=== PATIENT | male | born 1955 | race Caucasian/White ===

== ENCOUNTER 2016-04-06 14:27 | Inpatient (IN) | payer MEDICARE ==
[~2016-04-06] VITALS: Ht 172.7 cm; Wt 80.8 kg
[2016-04-06 14:32] VITALS: BP 137/77; PULSE 66; RESP 20; TEMP 97.6; O2SAT 97
--- NOTE | 2016-04-06 14:55 | PD ---
HPI Chief Complaint: Psychiatric Symptoms Time Seen by Provider: 14:55 Travel History International Travel<30 days: No Contact w/Intl Traveler<30days: No Traveled to known affect area: No History of Present Illness HPI 60-year-old male was brought to the emergency room by his son-in-law with history of worsening of his psych symptoms. Patient says that he's been hearing voices and cannot sit still. He has been feeling very edgy. He was constantly shaking his both upper extremities and pacing up and down. Son-in- law says he has not been taking any of his medications but it's been like that for one year. Recently his symptoms are worsening. He was brought in voluntarily. REPLACED BY [facility] Past Medical History Narrative Medical List of his past medical history as reviewed from the nursing note. Social History Tobacco Use: Yes Allergies-Medications (Allergen,Severity, Reaction): Coded Allergies: No Known Allergies (Unverified , 04/06/16) Comments No known allergies. Reported Meds & Prescriptions Reported Meds & Active Scripts Active No Active Prescriptions or Reported Medications Narrative Medication List of his past medical history as reviewed from the nursing note. Review of Systems Except as stated in HPI: all other systems reviewed are Neg Physical Exam Narrative GENERAL: Awake, alert, anxious, facial grimacing SKIN: Warm and dry. HEAD: Atraumatic. Normocephalic. EYES: Pupils equal and round. No scleral icterus. No injection or drainage. ENT: No nasal bleeding or discharge. Mucous membranes pink and moist. NECK: Trachea midline. No JVD. CARDIOVASCULAR: Regular rate and rhythm. No murmur appreciated. RESPIRATORY: No accessory muscle use. Clear to auscultation. Breath sounds equal bilaterally. GASTROINTESTINAL: Abdomen soft, non-tender, nondistended. Hepatic and splenic margins not palpable. MUSCULOSKELETAL: No obvious deformities. No clubbing. No cyanosis. No edema. NEUROLOGICAL: Awake and alert. No obvious cranial nerve deficits. Motor grossly within normal limits. Normal speech. PSYCHIATRIC: Appropriate mood and affect; insight and judgment normal. Data Data Last Documented VS Vital Signs Date Time Temp Pulse Resp B/P Pulse Ox O2 Delivery O2 Flow Rate FiO2 04/07/16 06:25 55 18 136/74 100 Room Air 04/06/16 14:32 97.6 Orders Complete Blood Count With Diff (04/06/16 14:55) Comprehensive Metabolic Panel (04/06/16 14:55) Drug Screen, Random Urine (04/06/16 14:55) Alcohol (Ethanol) (04/06/16 14:55) Psych Screen (04/06/16 14:55) Lorazepam (Ativan) (04/06/16 15:00) Haloperidol (Haldol) (04/06/16 15:00) Diphenhydramine (Benadryl) (04/06/16 15:00) Diet Regular Basic (04/06/16 Dinner) Diet Regular Basic (04/07/16 Breakfast) Admit Order (Ed Use Only) (04/07/16 ) Labs Laboratory Tests Test 04/06/16 04/06/16 15:20 15:25 Urine Opiates Screen NEG Urine Barbiturates Screen NEG Urine Amphetamines Screen NEG Urine Benzodiazepines Screen NEG Urine Cocaine Screen NEG Urine Cannabinoids Screen NEG White Blood Count 6.7 TH/MM3 Red Blood Count 4.82 MIL/MM3 Hemoglobin 14.9 GM/DL Hematocrit 42.6 % Mean Corpuscular Volume 88.3 FL Mean Corpuscular Hemoglobin 31.0 PG Mean Corpuscular Hemoglobin 35.1 % Concent Red Cell Distribution Width 13.6 % Platelet Count 212 TH/MM3 Mean Platelet Volume 9.1 FL Neutrophils (%) (Auto) 55.5 % Lymphocytes (%) (Auto) 34.9 % Monocytes (%) (Auto) 7.2 % Eosinophils (%) (Auto) 1.9 % Basophils (%) (Auto) 0.5 % Neutrophils # (Auto) 3.7 TH/MM3 Lymphocytes # (Auto) 2.3 TH/MM3 Monocytes # (Auto) 0.5 TH/MM3 Eosinophils # (Auto) 0.1 TH/MM3 Basophils # (Auto) 0.0 TH/MM3 CBC Comment DIFF FINAL Differential Comment Sodium Level 143 MEQ/L Potassium Level 3.9 MEQ/L Chloride Level 111 MEQ/L Carbon Dioxide Level 26.8 MEQ/L Anion Gap 5 MEQ/L Blood Urea Nitrogen 13 MG/DL Creatinine 0.78 MG/DL Estimat Glomerular Filtration 102 ML/MIN Rate Random Glucose 84 MG/DL Calcium Level 8.6 MG/DL Total Bilirubin 0.3 MG/DL Aspartate Amino Transf 15 U/L (AST/SGOT) Alanine Aminotransferase 21 U/L (ALT/SGPT) Alkaline Phosphatase 110 U/L Total Protein 7.9 GM/DL Albumin 4.0 GM/DL Ethyl Alcohol Level LESS THAN 3 MG/DL MDM Medical Decision Making Medical Screen Exam Complete: Yes Emergency Medical Condition: Yes Medical Record Reviewed: Yes Interpretation(s) Twelve-lead EKG was reviewed by me. Normal sinus rhythm, normal axis, nonspecific ST-T wave changes. Heart rate of 91 bpm. Differential Diagnosis Psychosis, auditory hallucinations Narrative Course 4:02 PM patient was given by mouth Haldol, Ativan and Benadryl. CBC is back and within normal limit. Awaiting for chemistry and urine drug screen. Once patient is medically cleared he will be need psych screen. Procedures EKG Prior to Arrival: No Scripts No Active Prescriptions or Reported Meds Mike Londono MD Apr 06, 2016 14:55
[2016-04-06] MEDS ORDERED: HALOPERIDOL 5 MG TAB PO ONE (15:00)
[2016-04-06] MEDS ORDERED: LORazepam 1 MG TAB PO ONE (15:00)
[2016-04-06] MEDS ORDERED: diphenhydrAMINE HCL 50 MG CAP PO ONE (15:00)
[2016-04-06 15:34] LABS: AUTOMATED NEUTROPHIL # 3.7 TH/MM3 (1.8-7.7); BASOPHIL % 0.5 % (0.0-2.0); EOSINOPHIL # 0.1 TH/MM3 (0-0.4); EOSINOPHIL % 1.9 % (0.0-4.0); HEMATOCRIT 42.6 % (39.0-51.0); HEMO FLAGS DIFF FINAL; LYMPH % 34.9 % (9.0-44.0); LYMPHOCYTE # 2.3 TH/MM3 (1.0-4.8); MEAN CELL VOLUME 88.3 FL (80.0-100.0); MEAN CORPUSCULAR HGB CONC 35.1 % (32.0-36.0); MONO % 7.2 % (0.0-8.0); NEUT % 55.5 % (16.0-70.0); PLATELET COUNT 212 TH/MM3 (150-450); RED BLOOD COUNT 4.82 MIL/MM3 (4.50-5.90); RED CELL DISTRIBUTION WIDTH 13.6 % (11.6-17.2); WHITE BLOOD COUNT 6.7 TH/MM3 (4.0-11.0)
[2016-04-06 15:42] LABS: AMPHETAMINE, URINE NEG (NEG); BARBITURATES, URINE NEG (NEG); COCAINE, URINE NEG (NEG)
[2016-04-06 16:05] LABS: ALKALINE PHOSPHATASE 110 U/L (45-117); ALT (GPT) 21 U/L (12-78); ANION GAP 5 MEQ/L (5-15); AST (GOT) 15 U/L (15-37); BICARBONATE 26.8 MEQ/L (21.0-32.0); BLOOD UREA NITROGEN 13 MG/DL (7-18); CHLORIDE 111 MEQ/L (98-107); GLOMERULAR FILTRATION RATE 102 ML/MIN (>89); POTASSIUM 3.9 MEQ/L (3.5-5.1); SODIUM (NA) 143 MEQ/L (136-145); TOTAL BILIRUBIN ADULT 0.3 MG/DL (0.2-1.0)
[2016-04-06 22:09] VITALS: BP 108/76; PULSE 95; RESP 19; O2SAT 99
[2016-04-07 01:48] VITALS: BP 129/69; PULSE 54; RESP 19; O2SAT 98
[2016-04-07 06:25] VITALS: BP 136/74; PULSE 55; RESP 18; O2SAT 100
[2016-04-07] MEDS ORDERED: MAGNESIUM HYDROXIDE SUSP 30 ML CUP PO PRN (08:15)
[2016-04-07] MEDS ORDERED: ALUMINUM/MAGNESIUM/SIMETH 30 ML CUP PO PRN (08:15)
[2016-04-07] MEDS ORDERED: ACETAMINOPHEN 325 MG TAB PO PRN (08:15)
[2016-04-07] MEDS ORDERED: LORazepam 2 MG/ML VIAL IM PRN (08:15)
[2016-04-07] MEDS ORDERED: diphenhydrAMINE HCL 50 MG/ML VIAL IM PRN (08:15)
[2016-04-07] MEDS ORDERED: diphenhydrAMINE HCL 50 MG CAP PO PRN ×2 (08:15)
[2016-04-07] MEDS: NICOTINE 21 MG/24 HR PATCH T-DERMAL SCH (09:00)
[2016-04-07] MEDS: REMOVE OLD NICOTINE PATCH T-DERMAL SCH (09:00)
[2016-04-07] MEDS: LORazepam 1 MG TAB PO PRN ×2 (09:08→16:29)
[2016-04-07] MEDS: HALOPERIDOL 5 MG TAB PO SCH ×2 (09:08→21:24)
--- NOTE | 2016-04-07 09:42 | MH ---
cc: SURYA CASAS MD DATE OF ADMISSION: 04/06/2016 ADMISSION DIAGNOSES 1. Schizophrenia, paranoid type with acute exacerbation. LEGAL STATUS The patient is capacitated to consent for admission and for medications. He has agreed to sign into the hospital voluntarily. HISTORY OF PRESENT ILLNESS Mr. Fowler is a 60-year-old male with a reported history of schizophrenia of the paranoid type, who presents on a voluntary basis for psychiatric evaluation. Reviewing the electronic medical record I note this is the patient's first visit to [facility]. The patient is seen and examined. Chart reviewed. Case discussed with nursing staff in the J pod. On my examination this morning, I find a calm and pleasant middle-aged male. He appears to be maintaining basic hygiene. He has some evident dyskinetic movements of the mouth, face and trunk and when I ask him about these he says that he is "being attacked by Satanists. They are attacking me. They rotate in shifts every 24 hours." He says that this has been going on 23 years. He also has been experiencing deprecatory auditory hallucinations that he says are threatening to kill him. He denies any suicidal or homicidal ideation. When I ask him why he does not want to kill the people that are attacking him he says, "I can't do nothing about it, I'm a Yarsanism." He says that he has been sleeping and eating fairly well. No real depressive symptoms. No other delusional material. The remainder of the psychiatric ROS is negative. PAST PSYCHIATRIC HISTORY The patient reports a prior diagnosis of schizophrenia. He has not seen a psychiatrist in 8 months and has been off medication. He says that the Haldol, Ativan and Benadryl that we gave him last night was extremely helpful and he would very much like to continue this regimen. He says his most recent psychiatric admission was several years ago, he cannot remember when exactly. He denies a history of suicide attempts. FAMILY HISTORY The patient reports that his brother has schizophrenia. His daughter also attempted suicide. No other family psychiatric history. CHEMICAL DEPENDENCY HISTORY The patient denies a history of abuse of drugs or alcohol. SOCIAL HISTORY The patient reports that he lives with his brother and son-in-law. He has a GED. He is on disability. He has five children and several grandchildren. He denies any legal history. He served in the [employer] but did not see combat. He had an honorable discharge. He denies any access to guns or firearms. He is Yarsanism. PAST MEDICAL HISTORY The patient reports a history of hepatitis C with associated cirrhosis of the liver. REVIEW OF SYSTEMS No reported headache, vision or hearing changes, chest pain, shortness of breath, bowel or bladder issues. He does have the dyskinetic movements as I said. PHYSICAL EXAMINATION Physical examination was completed in the emergency room by the ER staff and the patient was medically cleared. On my examination today, the patient appears to be well-nourished and well-developed if a little bit disheveled. He appears to be in no acute physical distress. He does have dyskinetic movements of the mouth, trunk and arms but otherwise no abnormal motor movements are noted. VITAL SIGNS: Temperature is 97.6 Fahrenheit, pulse is 55, respiratory rate is 18, blood pressure 136/74, O2 sat is 100% on room air. LABORATORY CBC is completely unremarkable, CMP is significant only for mild hyperchloremia at 111. Toxicology is negative and alcohol level is undetectable. MENTAL STATUS EXAMINATION The patient is in hospital gown. He is somewhat disheveled but maintaining basic hygiene. He is awake and alert and oriented x3. Motoric abnormalities as noted above. Speech is within normal limits for rate, tone and volume. Language and fund of knowledge seem average for age. Mood is fair and affect is blunted, tending towards flat. Thought process linear within delusional system. No loosening of associations. Paranoid delusions as detailed above are present. Deprecatory auditory hallucinations as noted above. No command auditory hallucinations. No visual hallucinations or other hallucinatory material. Denies any suicidal or homicidal ideation for the reasons noted above. Insight and judgment are fair. ASSESSMENT/PLAN This is a pleasant 60-year-old male with a history of schizophrenia who presents with decompensated psychotic symptoms in the setting of apparent medication non-adherence. He endorses paranoid delusions of being attacked by Satanists, and he appears to have delusional interpretation of what appears to be some dyskinesias. He says that he was really helped by the Haldol, Ativan and Benadryl that he received last night, more than he has been helped by any previous psychotropic medication in the past. He is agreeable to coming into the hospital for some psychiatric stabilization. I did discuss his options vis-a-vis pharmacotherapy with him in some detail and he says that he has tried several of the atypical antipsychotics which would be less liable to cause worsening of his apparent tardive dyskinesia, but he has not found any of them to be as efficacious as the Haldol he got last night. He would really like to continue the Haldol. Therefore, after discussion of the risks and benefits including highlighting the risk of worsening his tardive dyskinesia, he wishes to pursue Haldol therapy. Admit inpatient. Voluntary status. Check a hemoglobin A1c and lipid panel in the morning. Initiate Haldol 5 mg twice daily by mouth. Ativan as needed for anxiety, Benadryl as needed for sleep or EPS or mild anxiety. Vitals every shift. Counselor to see. Disposition planning. ESTIMATED LENGTH OF STAY: 3-5 days. Surya Casas DC/GEOVANNY /8:11 AM /9:02 AM [place]
[2016-04-07 09:52] VITALS: BP 114/70; PULSE 68; RESP 12; TEMP 97.4; O2SAT 96
[2016-04-07 19:01] VITALS: BP 114/60; PULSE 63; RESP 22; TEMP 97.7; O2SAT 95
[2016-04-08 05:47] VITALS: BP 131/65; PULSE 52; RESP 14; TEMP 97.6; O2SAT 96
[2016-04-08 07:33] LABS: HDL CHOLESTEROL 66.4 MG/DL (40.0-60.0); LDL CHOLESTEROL 69 MG/DL (0-99)
[2016-04-08] MEDS: NICOTINE 21 MG/24 HR PATCH T-DERMAL SCH (08:13)
[2016-04-08] MEDS: REMOVE OLD NICOTINE PATCH T-DERMAL SCH (08:14)
[2016-04-08] MEDS: HALOPERIDOL 5 MG TAB PO SCH ×2 (08:19→20:28)
[2016-04-08] MEDS ORDERED: INFLUENZA VIRUS VACCINE (QUADRIVALENT) 0.5 ML SYR IM ONE (10:00)
[2016-04-08] MEDS: LORazepam 1 MG TAB PO PRN ×2 (10:46→20:28)
--- NOTE | 2016-04-08 13:37 | HHI.PYPN ---
Subjective Remarks Patient seen and examined. Chart reviewed. Case discussed with nursing staff. Per nursing staff, patient continues to respond to internal stimuli. On my examination today, the patient tells me that he was "attacked earlier by spirits , but I feel better now." When I ask what this sort of attack feels like he says "I lose control of my bodily functions." Denies suicidal or homicidal ideation. Denies side effects from medications. Patient likes the anxiolytic effect of Ativan but wonders if there is something longer acting and we discussed the risks and benefits of some scheduled Klonopin. Patient is somewhat discharge focused but is willing to stay to allow us to make these medication adjustments. Review of Systems ROS Limitations: Poor Historian Other No physical complaints today. Objective Alert: Yes [place]: Person, Place Mood: Calm Affect: Flat Memory Intact: Comment (Intact on clinical exam.) Hallucinations: Auditory, Visual Delusions: Yes Delusion Type: Paranoid Suicidal: Ideation (Denies SI) Homicidal: Ideation (Denies HI) Insight/Judgement Fair Remarks No new abnormal motor movements noted. Dyskinesias persist, unchanged in severity. TP linear within delusional system. Speech wnl for rate, tone, volume. Labs Test 04/08/16 06:55 Triglycerides Level 121 MG/DL Cholesterol Level 160 MG/DL LDL Cholesterol 69 MG/DL HDL Cholesterol 66.4 MG/DL Cholesterol/HDL Ratio 2.40 RATIO Labs reviewed. Vitals/IOs Vital Signs Date Time Temp Pulse Resp B/P Pulse Ox O2 Delivery O2 Flow Rate FiO2 04/08/16 05:47 97.6 52 14 131/65 96 04/07/16 06:25 Room Air Intake and Output 04/07/16 04/07/16 04/08/16 08:00 16:00 00:00 Intake Total 480 ml 540 ml Balance 480 ml 540 ml Assessment & Plan Problem List: (1) Schizophrenia ICD Code: F20.9 Assessment & Plan Titrate patient's Haldol to target psychosis. Initiate low-dose Klonopin 0.5 mg twice daily. Continue other medications and care as ordered. Justification for Cont. Inpt. Impairments in reality testing. Medication changes in process. Discharge Planning Pending psychiatric stabilization. Request HC Surrog/Guard Advoc?: No Problem Qualifiers (1) Schizophrenia: Qualified Code: F20.0 - Paranoid schizophrenia Surya Casas MD Apr 08, 2016 13:37
[2016-04-08] MEDS ORDERED: PILL SPLITTER OTHER PRN (13:45)
[2016-04-08 16:57] LABS: HEMOGLOBIN A1a 0.9 %; HEMOGLOBIN A1b 1.5 %; HEMOGLOBIN Ao 86.8 %; HEMOGLOBIN LA1C 1.8 %; HEMOGLOBIN P3 3.5 %
[2016-04-08 18:42] VITALS: BP 119/62; PULSE 72; RESP 16; TEMP 97.5; O2SAT 96
[2016-04-08] MEDS: clonazePAM 0.5 MG TAB PO SCH (22:15)
[2016-04-09 06:15] VITALS: BP 120/61; PULSE 64; RESP 16; TEMP 97.8; O2SAT 96
[2016-04-09] MEDS: clonazePAM 0.5 MG TAB PO SCH ×2 (08:19→21:55)
[2016-04-09] MEDS: REMOVE OLD NICOTINE PATCH T-DERMAL SCH (08:20)
[2016-04-09] MEDS: NICOTINE 21 MG/24 HR PATCH T-DERMAL SCH (08:20)
[2016-04-09] MEDS: HALOPERIDOL 5 MG TAB PO SCH ×2 (08:20→21:57)
--- NOTE | 2016-04-09 13:16 | HHI.PYPN ---
Subjective Remarks Patient seen and examined. Chart reviewed. Case discussed with nursing staff and counselor. On my examination today, the patient reports that he feels like he is being attacked less often by the spirits. He is less distressed by these attacks when they do occur. He continues to believe that he may be pursued by Satanists, but seems less distressed by this as well. Denies side effects from medications. We discussed ongoing medication adjustment options as well as disposition options. Review of Systems Other No physical complaints today Objective Alert: Yes [place]: Person, Place Mood: Calm Affect: Blunted Memory Intact: Comment (remains intact) Hallucinations: Auditory (perhaps lessening), Visual Delusions: Yes Delusion Type: Paranoid (perhaps improving somewhat) Suicidal: Ideation (no SI) Homicidal: Ideation (no HI) Insight/Judgement Fair Remarks No new or worsened motoric abnormalities noted. Labs Labs reviewed. Vitals/IOs Vital Signs Date Time Temp Pulse Resp B/P Pulse Ox O2 Delivery O2 Flow Rate FiO2 04/09/16 06:15 97.8 64 16 120/61 96 04/07/16 06:25 Room Air Intake and Output 04/08/16 04/08/16 04/09/16 08:00 16:00 00:00 Intake Total 2020 ml Balance 2020 ml Assessment & Plan Problem List: (1) Schizophrenia ICD Code: F20.9 Assessment & Plan Patient seems to be responding to Haldol/Klonopin combination. Haldol was just titrated yesterday. Continue Haldol as ordered for now although we could consider titrating the dose to 10 mg twice a day tomorrow. Continue Klonopin as ordered. Continue other medications and care as ordered. Justification for Cont. Inpt. Risk for decompensation. Impairments in reality testing. Discharge Planning Possible assisted living placement if the patient is willing. Case discussed with counselor. Request HC Surrog/Guard Advoc?: No Problem Qualifiers (1) Schizophrenia: Qualified Code: F20.0 - Paranoid schizophrenia Surya Casas MD Apr 09, 2016 13:16
[2016-04-09 17:13] VITALS: BP 153/80; PULSE 63; RESP 16; TEMP 97.7; O2SAT 95
[2016-04-10 06:04] VITALS: BP 108/66; PULSE 61; RESP 15; TEMP 97.9; O2SAT 98
--- NOTE | 2016-04-10 08:52 | HHI.PYPN ---
Subjective Remarks Patient seen and examined. Chart reviewed. Case discussed with nursing staff who reports patient was complaining of ongoing auditory hallucinations cursing at him overnight. On my examination today, the patient does continue to complain that he hears voices cursing at him. He does think they've quieted down a little bit with Haldol. He denies any suicidal or homicidal ideation. He denies any side effects from Haldol and would like to titrate this medication. I did discuss this with him as an option but also broached the possibility of a medication less liable to cause EPS and TD. We discussed atypicals, although he has tried several, and also clozapine, but the patient feels like the Haldol is helping and would like to stick with it. He now says that he doesn't want assisted living placement and would like to return to his family. Review of Systems ROS Limitations: Psychotic, Poor Historian Other No physical complaints today Objective Alert: Yes [place]: Person, Place Mood: Calm Affect: Blunted Memory Intact: Comment (remains intact) Hallucinations: Auditory (deprecatory, noncommand), Visual (None) Delusions: Yes Delusion Type: Paranoid (lessened) Suicidal: Ideation (denies SI) Homicidal: Ideation (denies HI) Insight/Judgement Fair Remarks No new motoric abnormalities noted. Thought process linear. Labs Labs reviewed. No new labs. Vitals/IOs Vital Signs Date Time Temp Pulse Resp B/P Pulse Ox O2 Delivery O2 Flow Rate FiO2 04/10/16 06:04 97.9 61 15 108/66 98 04/07/16 06:25 Room Air Intake and Output 04/09/16 04/09/16 04/10/16 08:00 16:00 00:00 Intake Total 600 ml 960 ml 480 ml Balance 600 ml 960 ml 480 ml Assessment & Plan Problem List: (1) Schizophrenia ICD Code: F20.9 Assessment & Plan Titrate Haldol per patient preference. Continue other psychotropics as ordered. Continue other medications and care as ordered. Justification for Cont. Inpt. Impairments in reality testing. Medication adjustments. Discharge Planning Pending psychiatric stabilization. Counselor informs me that [facility] be [facility] to [facility] on discharge. Request HC Surrog/Guard Advoc?: No Problem Qualifiers (1) Schizophrenia: Qualified Code: F20.0 - Paranoid schizophrenia Surya Casas MD Apr 10, 2016 08:52
[2016-04-10] MEDS ORDERED: HALOPERIDOL 10 MG TAB PO SCH (09:00)
[2016-04-10] MEDS: NICOTINE 21 MG/24 HR PATCH T-DERMAL SCH (09:00)
[2016-04-10] MEDS: REMOVE OLD NICOTINE PATCH T-DERMAL SCH (09:00)
[2016-04-10] MEDS: clonazePAM 0.5 MG TAB PO SCH ×2 (09:36→20:12)
[2016-04-10] MEDS: HALOPERIDOL 5 MG TAB PO SCH ×2 (10:46→20:12)
[2016-04-10 19:09] VITALS: BP 124/73; PULSE 62; RESP 16; TEMP 97.4; O2SAT 96
[2016-04-11 05:40] VITALS: BP 111/64; PULSE 57; TEMP 97.9; O2SAT 97
[2016-04-11] MEDS ORDERED: CLON.5 PO (08:39)
[2016-04-11] MEDS ORDERED: HALO10TA PO (08:39)
--- NOTE | 2016-04-11 08:39 | HHI.DS ---
Psychiatry Discharge Summary Inpatient Psychiatric care?: Yes Advance Directive: No Mental Health AdvanceDirective: No Health Care Proxy: No Admission Admission Date Apr 07, 2016 at 08:07 Admission Diagnosis: (1) Schizophrenia ICD Code: F20.9 Brief History Mr. Fowler is a 60-year-old male with a reported history of schizophrenia of the paranoid type, who presents on a voluntary basis for psychiatric evaluation. Reviewing the electronic medical record I note this is the patient's first visit to [facility]. The patient is seen and examined. Chart reviewed. Case discussed with nursing staff in the J pod. On my examination this morning, I find a calm and pleasant middle-aged male. He appears to be maintaining basic hygiene. He has some evident dyskinetic movements of the mouth, face and trunk and when I ask him about these he says that he is "being attacked by Satanists. They are attacking me. They rotate in shifts every 24 hours." He says that this has been going on 23 years. He also has been experiencing deprecatory auditory hallucinations that he says are threatening to kill him. He denies any suicidal or homicidal ideation. When I ask him why he does not want to kill the people that are attacking him he says, "I can't do nothing about it, I'm a Anabaptist." He says that he has been sleeping and eating fairly well. No real depressive symptoms. No other delusional material. The remainder of the psychiatric ROS is negative. Tobacco Use In Past 30 Days: Cognitive Impairment Alcohol Use: Never Hospital Course Patient was admitted to a locked, inpatient psychiatric unit. Appropriate precautions were in place throughout patient's hospital stay. Patient was seen and examined daily on the unit by psychiatry and also visited by counselor. Medications were adjusted. Patient tolerated medications well without side effects. There was no evidence of any suicidality or homicidality on the inpatient unit. Patient remained in good behavioral control and is medication compliant. On the day of discharge: Case discussed with nursing staff. No behavioral issues do note. Case discussed with counselor. On my examination today, the patient requests discharge from the inpatient psychiatric unit. He says that his psychotic symptoms including the delusion of spiritual warfare are significantly attenuated with the benefit of Haldol therapy. Denies ongoing audiovisual hallucinations. Denies SI or HI. Denies side effects from medications. Denies physical complaints. Weighing the acute, chronic, and protective factors and based on the available evidence, I judged reasonable degree of medical certainty that the patient is at low imminent risk of harm to self or others from a mental illness as defined under the [place] act and his level of function is adequate for outpatient care. Patient will be discharged today in stable condition with psychiatric follow-up as arranged by counselor. Patient is also to follow-up with primary care. Results Blood Pressure 111 / 64 Vital Signs Date Time Temp Pulse Resp B/P Pulse Ox O2 Delivery O2 Flow Rate FiO2 04/11/16 05:40 97.9 57 111/64 97 04/10/16 19:09 16 Laboratory Results Test 04/08/16 06:55 Hemoglobin A1c 4.8 % (4.3-6.0) Triglycerides Level 121 MG/DL (42-150) Cholesterol Level 160 MG/DL (120-200) LDL Cholesterol 69 MG/DL (0-99) HDL Cholesterol 66.4 MG/DL (40.0-60.0) Summary of Procedures None done Imaging None done Pending results at discharge: No Medications # of Antipsychotic meds at D/C: 1 Approp Antipsych med options 1 - Minimum of three failed multiple trials of monotherapy. 2 - Documented plan to taper to monotherapy due to previous use of multiple meds OR cross-taper in progress at D/C. 3 - Documentation of augmentation of Clozapine. 4 - Justification other than those listed in allowable values 1-3, document here : Discharge Discharge Date: Apr 11, 2016 Discharge Diagnosis: (1) Schizophrenia Diagnosis: Principal ICD Code: F20.9 GAF on discharge is 55 Mental Status Exam at Disch Patient is in hospital gown. He is well groomed and maintaining basic hygiene. He is awake and alert and oriented to person and hospital at least. No new motoric abnormalities noted. Speech is within normal limits for rate, tone and volume. Language and fund of knowledge seemed average for age. Mood is fair and affect is blunted. Thought process linear. No loosening of associations. Residual paranoia significantly lessened versus admission. No other delusional material. Denies AVH. Denies suicidal or homicidal ideation. Insight and judgment are fair. Pt Condition on Discharge: Stable Discharge Disposition: Discharge Home Discharge Instructions Diet Instructions: As Tolerated, No Restrictions Activities you can perform: Weight Bearing as Antony Scheduled Appointment: as per counselor's notes New Medications: Haloperidol (Haloperidol) 10 Mg Tab 10 MG PO BID Mental Health Days 15 Ref 1 TAB Clonazepam (Klonopin) 0.5 Mg Tab 0.5 MG PO Q12HR Mental Health Days 15 Ref 1 TAB Discharge Time <= 30 minutes Discharge/Advance Care Plan Health Problems: (1) Schizophrenia Goals to promote your health * To prevent worsening of your condition and complications * To maintain your health at the optimal level Directions to meet your goals Take your medications as prescribed Follow your dietary instruction Follow activity as directed Keep your appointments as scheduled Take your immunizations and boosters as scheduled If your symptoms worsen call your PCP, if no PCP go to Urgent Care Center or Emergency Room For 14/10 questions related to your inpatient stay or results of tests pending at discharge, please contact Dr. Surya Casas at Smoking is Dangerous to Your Health. Avoid second hand smoking Problem Qualifiers (1) Schizophrenia: Qualified Code: F20.0 - Paranoid schizophrenia Surya Casas MD Apr 11, 2016 08:39
[2016-04-11] MEDS: REMOVE OLD NICOTINE PATCH T-DERMAL SCH (09:00)
[2016-04-11] MEDS: NICOTINE 21 MG/24 HR PATCH T-DERMAL SCH (09:00)
[2016-04-11] MEDS: HALOPERIDOL 5 MG TAB PO SCH (09:00)
[2016-04-11] MEDS: clonazePAM 0.5 MG TAB PO SCH (09:00)
== END 2016-04-11 10:55 | disposition home or self-care (01) | DRG 885 ==
LOC: NEPC 14:27 → NEDA 04-07 08:07 → H4EA 04-07 09:45
PROVIDERS: ADMIT Psychiatry & Neurology Psychiatry; ATTEND Psychiatry & Neurology Psychiatry
DX: F20.9 Schizophrenia, unspecified (principal); K74.60 Unspecified cirrhosis of liver; B19.20 Unspecified viral hepatitis C without hepatic coma; Z72.0 Tobacco use
CPT/HCPCS: 80053; 80061; 80307; 80320; 83036; 85025; 99284; Q0163